=== PATIENT | female | born 1945 | race Caucasian/White ===

== ENCOUNTER 2019-05-26 02:25 | Emergency (ER) | payer OTHER ==
[~2019-05-26] VITALS: Ht 172.7 cm; Wt 81.6 kg
[~2019-05-26 02:25] MED LIST: ACETAMINOPHEN/O1 TA3 PO; AMLODIPINE BESYL5 M1 PO; COUMADIN5 MG PO; DICLOFENAC SODI75 MG PO; DYA PO; FLUTICASONE; GOOD SENSE ASPI81 M3 PO; HYDROCODONE/ACETAMIN; LOSARTAN POTAS100 M1 PO; LOV30I SC; MAXZIDE1 TAB PO; PROAIR HFA0.09 MG/A1 INH; TIZANIDINE HCL4 MG PO; TRAMADOL HCL50 MG PO; ULT50 PO; VOL50 PO; ZAN4 PO; ZOCOR40 MG PO
[2019-05-26 02:29] VITALS: Ht 172.7 cm; Wt 81.6 kg
[2019-05-26 04:16] VITALS: BP 128/82
== END 2019-05-26 04:16 | disposition home or self-care (01) ==
LOC: ED 02:25
DX: T78.3XXA Angioneurotic edema, initial encounter (principal); I10 Essential (primary) hypertension; E78.00 Pure hypercholesterolemia, unspecified; Z88.0 Allergy status to penicillin; Z88.7 Allergy status to serum and vaccine; Z98.890 Other specified postprocedural states
CPT/HCPCS: J2930; J3490; J7030

== ENCOUNTER 2019-09-21 18:58 | Inpatient (IN) | payer OTHER ==
[~2019-09-21] VITALS: Ht 172.7 cm; Wt 84.8 kg
[2019-09-21 19:17] VITALS: Ht 172.7 cm; Wt 84.8 kg
[2019-09-21 20:04] LABS: BASOPHIL % 0.5 % (0-2); PLATELET COUNT 154 x10^3mcL (130-400)
[2019-09-21 20:06] LABS: RED CELL DISTRIBUTION WIDTH 15.7 % (11.5-14.5)
[2019-09-21 20:19] LABS: CALCIUM 8.9 mg/dL (8.5-10.1); CHLORIDE SERUM 102 mmol/L (98-107); CREATININE SERUM 1.2 mg/dL (0.6-1.0); GLUCOSE SERUM 136 mg/dL (74-106); POTASSIUM SERUM 3.3 mmol/L (3.5-5.1); SODIUM SERUM 141 mmol/L (136-145)
[2019-09-21 20:24] LABS: ALBUMIN 3.8 g/dL (3.4-5.0); ALKALINE PHOSPHATASE 99 U/L (46-116); ALT/SGPT 37 U/L (14-59); AST/SGOT 21 U/L (15-37); BILIRUBIN TOTAL 1.2 mg/dL (0.20-1.00); TOTAL PROTEIN, SERUM 8.4 g/dL (6.4-8.2)
[2019-09-21] MEDS ORDERED: LOSARTAN POTASS1 TA8 PO (21:17)
[2019-09-21] MEDS ORDERED: ASPIRIN ADULT L81 M5 PO (21:18)
[2019-09-21] MEDS ORDERED: AZOR 5-40 MG T1 EACH PO (21:18)
[2019-09-21] MEDS ORDERED: ATORVASTATIN CA80 M1 PO (21:18)
[2019-09-21] MEDS ORDERED: COU5 PO (21:19)
[2019-09-21] MEDS ORDERED: PROAIR HFA8.5 GM (21:19)
[2019-09-21 22:20] VITALS: BP 128/87
[2019-09-21 22:31] VITALS: BP 154/91
[2019-09-22 06:19] VITALS: BP 123/75
[2019-09-22 06:37] LABS: PLATELET COUNT 133 x10^3mcL (130-400)
[2019-09-22 07:08] LABS: RED CELL DISTRIBUTION WIDTH 15.6 % (11.5-14.5)
[2019-09-22 07:09] LABS: BASOPHIL % 0 % (0-2)
[2019-09-22 07:52] LABS: CALCIUM 8.6 mg/dL (8.5-10.1); CARBON DIOXIDE 26.5 mmol/L (21-32); CHLORIDE SERUM 106 mmol/L (98-107); GLUCOSE SERUM 167 mg/dL (74-106); POTASSIUM SERUM 4.2 mmol/L (3.5-5.1); SODIUM SERUM 142 mmol/L (136-145)
[2019-09-22 08:37] VITALS: BP 156/84
[2019-09-22 12:18] VITALS: BP 140/79
[2019-09-22] MEDS ORDERED: LEVAQUIN750 MG PO (12:21)
[2019-09-22] MEDS ORDERED: DELTASONE20 MG PO (12:21)
[2019-09-22 13:13] VITALS: BP 140/79
== END 2019-09-22 14:20 | disposition home or self-care (01) | DRG 190 ==
LOC: ED 18:58 → DU 21:13
PROVIDERS: Emergency Medicine; Internal Medicine Pulmonary Disease; ADMIT Hospitalist
DX: J44.1 Chronic obstructive pulmonary disease with (acute) exacerbation (principal); J18.9 Pneumonia, unspecified organism; I48.20 Chronic atrial fibrillation, unspecified; I10 Essential (primary) hypertension; E78.00 Pure hypercholesterolemia, unspecified; Z79.01 Long term (current) use of anticoagulants; Z79.51 Long term (current) use of inhaled steroids; Z88.0 Allergy status to penicillin; Z88.7 Allergy status to serum and vaccine; Z87.891 Personal history of nicotine dependence
CPT/HCPCS: 83880; 87804; G0378; J0456; J0696; J1650; J2930; J7030; J7050; J7060; J7613; J7644; Q0092